=== PATIENT | female | born 1975 | race Hispanic/Latino ===

== ENCOUNTER 2024-05-17 09:55 | Day surgery (SDC) | payer OTHER ==
[2024-05-16 09:25] LABS: Absolute Basophils 0.1 K/uL (0-0.5); Absolute Eosinophils 0.1 K/uL (0-0.5); Absolute Lymphocytes (CBC) 3.4 K/uL (0.7-4.9); Absolute Monocytes 0.8 K/uL (0.1-1.3); Absolute Neutrophil 7.2 K/uL (1.8-8.0); Basophils % 0.8 % (0-1.3); Eosinophils % 1.2 % (0-4.4); Hematocrit 43.5 % (36.0-45.0); Hemoglobin 14.3 g/dL (12.0-15.0); Lymphocytes % 29.2 % (15.3-44.8); MCH 27.1 pg (27.0-35.0); MCV 82.1 fL (80-100); MPV 7.7 fL (7.6-11.3); Monocytes % 7.2 % (3.3-12.3); Neutrophils % 61.6 % (41.7-73.7); Nucleated Red Blood Cells % 0.1 % (0-0); Platelets 296 thou/uL (152-406); Red Cell Distribution Width 13.8 % (12.1-15.2)
[2024-05-16 09:40] LABS: Albumin 3.7 g/dL (3.4-5.0); Albumin/Globulin Ratio 0.8 (1.1-1.8); Anion Gap 7.5 mEq/L (5.0-15.0); Bilirubin Total 0.5 mg/dL (0.2-1.0); Globulin 4.4 g/dL (2.3-3.5); Potassium 4.5 mEq/L (3.5-5.1); Protein, Total 8.1 g/dL (6.4-8.2)
[2024-05-17] MEDS: Ringers Lactate 1,000 ML IV ONE (10:40)
[2024-05-17] MEDS ORDERED: ONDANSETRON 4 MG/2 ML VIAL ONE (11:43)
[2024-05-17] MEDS ORDERED: propofoL 200 MG/20 ML VIAL IV ONE (11:43)
[2024-05-17] MEDS ORDERED: MIDAZOLAM HCL 2 MG/2 ML INJ ONE (11:43)
[2024-05-17] MEDS ORDERED: ROCURONIUM 50 MG/5 ML VIAL IV ONE (11:43)
[2024-05-17] MEDS ORDERED: LIDOCAINE 1% MPF 5 ML VIAL ONE (11:43)
[2024-05-17] MEDS ORDERED: FENTANYL CITR 100 MCG/2 ML ONE (11:43)
[2024-05-17] MEDS: CEFOXITIN SODIUM 2 GM/VIAL ONE (12:35)
[2024-05-17] MEDS ORDERED: KETOROLAC 30 MG/ML INJ ONE (12:42)
[2024-05-17] MEDS: LIDOCAINE HCL/EPINEPHRINE 20 ML MDV ONE (12:46)
--- NOTE | 2024-05-17 13:27 | P.OP ---
Preoperative diagnosis: Cholecystitis with Cholelithiasis Postoperative diagnosis: Cholecystitis with Cholelithiasis Primary procedure: Laparoscopic Cholecystectomy with ICG Anesthesia: GETA + Local Estimated blood loss: <5cc Specimen: Gallbladder Findings: Contracted Gallbladder with stones Complications: None Transferred to: Recovery Room Condition: Good
[2024-05-17 14:03] VITALS: O2SAT 96
--- NOTE | 2024-05-17 14:26 | OP ---
Date of Procedure: 05/17/2024 Surgeon: John Jackson MD, Preoperative Diagnosis: Cholecystitis with cholelithiasis. Postoperative Diagnosis: Cholecystitis with cholelithiasis. Procedure Performed: Laparoscopic cholecystectomy with indocyanine green cholangiography. Anesthesia: General endotracheal plus local with 1% lidocaine. Estimated Blood Loss: Less than 5 cc. Specimen: Gallbladder. Findings: Contracted gallbladder with stones. Significant omental attachments to the midline at the infraumbilical position. Complication: None. Disposition: The patient transferred to recovery room in good condition. Procedure In Detail: After informed consent was obtained, the patient was brought to the operating r oom, prepped and draped in the usual sterile fashion. After adequate anesthesia was achieved, anesth etized an area in the supraumbilical position down through subcutaneous tissues. 5 mm 0-degree optic al trocar was introduced in the abdomen without incident or complication. Insufflation obtained to 1 5 mmHg at this time. There was no injury to vital structures upon entry into the abdomen. Two addit ional trocars were placed, one in the epigastrium and one in the right upper quadrant. Both of these were similarly anesthetized and sharply incised. A 5 mm trocar was placed under direct vision witho ut incident or complication. I then proceeded to place the patient in head up right-side up position . Ratcheted graspers used to grasp the patient's gallbladder, placed it towards the patient's right shoulder. Dissection continued down the Gemma pouch of the gallbladder, dissecting out 2 structur es, identified as both cystic duct and cystic artery. Critical view of safety was obtained. At this point, indocyanine green cholangiography confirmed the anatomy at this point, and the proposed trans ection site was far from the confluence of the cystic duct, common duct junction. At this point, aft er the structures were completely skeletonized as described, I placed double titanium clips on the pr oximal side and singly on the distal side of both cystic duct and cystic artery. These structures we re then ligated between Endo Seble. At this point, the gallbladder removed from the hepatic fossa w ithout incident or complication using electrocautery, placed in EndoCatch bag, removed through the um bilical trocar site, sent off for pathologic examination. The abdomen was then copiously irrigated, suctioned out completely dry. No additional hemostatic measures required. Clips were found to be in good anatomic position. There was no leakage of bile as indicated with indocyanine green cholangiog david. At the end of the procedure, the patient positioned back to neutral position. Remaining effl uent was suctioned out after the patient positioned in neutral position. I then closed the 12 mm tro car site using Teresa suture passer with 0 Vicryl in interrupted fashion with good approxima tion of tissues. The abdomen was then desufflated under direct vision without incident or complicati on. All remaining trocars removed. All skin incisions were then copiously irrigated and closed with 4-0 Monocryl in running fashion. Dermabond placed over top. The patient tolerated the procedure wi thout incident or complication, transferred to PACU in good condition. All counts were correct at th e end of the case. [id number]/MISA Voice ID: [id number] Report ID: [id number]
[2024-05-17 15:34] VITALS: BP 135/83
[2024-05-17 15:37] VITALS: TEMP 97.1
== END 2024-05-17 15:25 | disposition home or self-care (01) ==
LOC: OR 09:55
PROVIDERS: ATTEND Surgery
PROC: BF50200 Other Imaging of Bile Ducts using Fluorescing Agent, Indocyanine Green Dye, Intraoperative (ICD-10-PCS; 2024-05-17)
PROC: 0FT44ZZ Resection of Gallbladder, Percutaneous Endoscopic Approach (ICD-10-PCS; principal; 2024-05-17 12:45)
DX: K80.10 Calculus of gallbladder with chronic cholecystitis without obstruction (principal)
CPT/HCPCS: 93005; 85025; 36415; 88304; 80053; 47563; J2704; J2003; J2250; J3010; J0694; J2405; J7120